=== PATIENT | female | born 1940 | race Caucasian/White ===

== ENCOUNTER 2018-04-20 20:43 | Inpatient (IN) ==
[2018-04-20] MEDS ORDERED: ONDANSETRON HCL/PF 2 MG/ML VIAL ONE (20:49)
[2018-04-20] MEDS ORDERED: MORPHINE SULFATE 4 MG/ML SYRG ONE (20:49)
[2018-04-20] MEDS ORDERED: ONDANSETRON HCL/PF 2 MG/ML VIAL IV ONE (20:54)
[2018-04-20] MEDS ORDERED: MORPHINE SULFATE 2 MG/ML DISP.SYRIN IV ONE (20:55)
--- NOTE | 2018-04-20 21:04 | ERNOTE ---
Lower Extremity HPI - Narrative Date of Service: 04/20/18 - General Lower Extremities Pain: hip: left Time Seen by Provider: 04/20/18 20:45 Source: patient Exam Limitations: no limitations - Immun/Allergies/Home Medications Immunizations: IMMUNIZATION HX Immunizations Up to Date Yes History of Influenza Vaccine Yes Hx Pneumococcal Vaccination Yes Allergies/Adverse Reactions: Allergies Allergy/AdvReac Type Severity Reaction Status Date / Time lisinopril AdvReac Mild Other Verified 04/20/18 20:47 Home Medications: HOME MEDICATIONS Cholecalciferol (Vitamin D3) [Vitamin D3] 2,000 unit PO DAILY 06/04/15 [Last Taken Unknown] Docusate Sodium [Colace] 200 mg PO HS 06/04/15 [Last Taken Unknown] Multivit-Min/Iron/Folic/Lutein [Centrum Silver Women Tablet] 1 ea PO DAILY 06/04/15 [Last Taken Unknown] Psyllium Husk (with Sugar) [Metamucil] 1 ea PO DAILY 06/04/15 [Last Taken Unknown] Ubidecarenone/Vit E Acet [Co Q-10 100 mg Softgel] 2 ea PO DAILY 06/04/15 [Last Taken Unknown] cetirizine 10 mg capsule 10 mg PO DAILY cap 10/16/17 [Last Taken Unknown] loratadine 10 mg tablet 10 mg PO DAILY 10/16/17 [Last Taken Unknown] losartan 50 mg tablet 50 mg PO DAILY #90 tab 11/13/17 [Last Taken Unknown] atorvastatin 10 mg tablet 10 mg PO DAILY #90 tab 03/04/18 [Last Taken Unknown] donepezil 10 mg tablet 10 mg PO DAILY #90 tab 03/04/18 [Last Taken Unknown] venlafaxine 37.5 mg tablet 37.5 mg PO DAILY #90 tab 03/04/18 [Last Taken Unknown] - Pain Score Pain Score #1 Pain Score: 8 - History of Present Illness Narrative: The patient is a 77 year old female who presents for left hip pain s/p fall which has been present since just [employer]. There are no associated symptoms. The patient reports left lateral hip pain, 8. There are no alleviating factors. There are aggravating factors of movement. Previous treatments have included: patient received Fentanyl 50mcg by EMS. The past medical history includes: anxiety, depression, dementia, HLD, HTN and osteopenia. The social history is negative. The patient has had no ill contacts. Patient states she had just returned home from dinner and a movie. Patient was out of her wheelchair and attempting to sit down in her "easy chair" when she lost balance upon trying to sit and fell landing on left hip. Patient denies striking head or LOC. Patient denies neck pain. Occurred: just prior to arrival, this evening Location of Incident: home Method of Injury: Reports: fell Reason for Fall: Reports: lost balance Loss of Consciousness: Reports: no loss of consciousness Modifying Factors - (Improves): Reports: immobilization Modifying Factors - (Worsens): Reports: jarring, movement Associated Symptoms: Reports: unable to bear weight. Denies: dizzy/light headedness Other Injuries: Reports: none Review of Systems - Review of Systems Constitutional: Present: no symptoms reported. Absent: recent illness, fever, fatigue EYE: Present: no symptoms reported ENT: Present: no symptoms reported. Absent: ear pain, nasal drainage, sore throat Respiratory: Present: no symptoms reported. Absent: shortness of breath, cough Cardiology: Present: no symptoms reported. Absent: chest pain Gastrointestinal/Abdominal: Present: no symptoms reported. 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 Hair, nose Family History: Family History (Last Reviewed 04/20/18 @ 21:00 by DAISHA Schmidt) Brother CVA (cerebral vascular accident) Heart disease Cancer Daughter Cancer age 44 Breast CA 2013 Father CHF (congestive heart failure) Heart disease Mother CHF (congestive heart failure) CVA (cerebral vascular accident) Social History: Preferred Language Venezuelan Smoking Status Never smoker Abuse History No History of abuse Psych History Hx of Anxiety,Hx of Depression Alcohol Use none Drug Use none (Last Updated 11/13/17 @ 16:05 by Chuyita Vaughn DO) No Social History Section defined Physical Exam - Physical Exam General Appearance: Present: wd/wn, alert, moderate distress, anxious Head Exam: Present: normal inspection, no evidence of injury, no tenderness w palpation. Absent: Pizano's Sign, contusions, ecchymosis, raccoon eyes, swelling Eye Exam: Normal inspection: bilateral Neck: Present: normal inspection, nontender, full range of motion Respiratory: Present: no respiratory distress, normal breath sounds, no accessory muscle use, lungs clear Cardiovascular/Chest: Present: regular rate, rhythm, no murmur Peripheral Pulses: N=norm/S=strong/W=weak/B=bound/A=absent: Femoral (L): Normal, Dorsalis-pedis (L): Normal Gastrointestinal/Abdominal: Present: normal bowel sounds, nontender, nondistended, soft, no organomegaly Extremity Exam: Present: normal inspection, normal range of motion - bilateral upper extremities, bony tenderness - left lateral hip, shortening to left lower extremity Neurological Exam: Present: alert, oriented, normal mood/affect Skin Exam: Present: normal color, warm/dry Progress - Date and Time Seen: Date and Time: 04/20/18 21:49 Discussed case with , patient will be admitted to medicine, remain NPO for possible surgical repair tomorrow of displaced left femoral neck fx. 04/20/18 21:50 Patient accepted by due to left hip fracture with orthopedic consult. - Results and Orders Patient's Lab Results:: I have reviewed the patient's lab results. - Vital Signs Patient's Vital Signs:: I have reviewed the patient's vital signs. Vital Signs: Vital Signs 04/20/18 20:43 Temperature 37.5 C Pulse Rate 75 Respiratory Rate 20 Blood Pressure 117/78 O2 Sat by Pulse Oximetry 99 - EKG EKG #1 EKG: NSR, other - PAC EKG read: Reviewed by me - X-Ray X-Ray #1 X-Ray: chest Interpretation: Reviewed by me X-ray Comments: No acute cardiopulmonary abnormality. X-Ray #2 X-Ray: c-spine Interpretation: Reviewed by me X-ray Comments: Arthritic changes noted, no acute osseous abnormalities or misalignment. Reviewed with . X-Ray #3 X-Ray: hip Interpretation: Reviewed by me X-ray Comments: Displaced left femoral neck fracture. Reviewed with . - Progress/Reassessment Chief Complaint: Hip Pain/Injury Departure Clinical Impression: Left displaced femoral neck fracture - Departure Disposition: Still a patient Condition: Good
[2018-04-20 21:32] LABS: Hematocrit 36.5 % (37.0-47.0); Hemoglobin 12.1 gm/dL (12.5-16.0); Mean Cell Volume 90.1 fl (78-100); Mean Corpuscular Hemoglobin 29.9 pg (27-31); Mean Corpuscular Hgb Conc 33.2 g/dl (32-36); Mean Platelet Volume 8.9 fl (8-12.5); Neutrophil # 3.5 K/mm3 (1.3-6.0); Neutrophil % 58.2 % (42-75.0); Platelet Count 227 K/mm3 (150-450); Red Blood Count 4.05 M/mm3 (4.2-5.4); Red Cell Distribution Width 12.5 % (11.5-14.0)
[2018-04-20 21:40] LABS: Albumin * 3.9 gm/dl (3.4-5.0); Anion Gap 17.3 mmol/L (6.8-13.8); BUN/Creatinine Ratio 13.3 (9.0-21.6); Bilirubin, Total 0.4 mg/dL (0.0-1.1); Ca. Corrected For Albumin 9.3 mg/dL (8.4-10.2); Calcium * 9.5 mg/dL (7.9-10.9); Carbon Dioxide 25.8 mmol/L (24-32.6); Potassium 4.1 mmol/L (3.4-4.6); Total Protein 7.9 gm/dL (6.2-8.2)
[2018-04-20] MEDS ORDERED: ONDANSETRON HCL/PF 2 MG/ML VIAL IV PRN (22:01)
[2018-04-20] MEDS: MORPHINE SULFATE 4 MG/ML SYRG IV PRN (23:18)
[2018-04-20] MEDS: NORMAL SALINE 1,000 ML IV PRN (23:26)
[2018-04-21] MEDS: MORPHINE SULFATE 4 MG/ML SYRG IV PRN ×3 (07:02→17:49)
--- NOTE | 2018-04-21 07:20 | HP ---
Chief Complaint - Chief Complaint Date of Service: 04/21/18 Time of Service: 07:19 Chief Complaint: right hip fracture History of Present Illness: Patient with past medical history of dementia and hypertension was brought to the ER after falling at home. Was found to have left hip fracture. This morning, she is able to tell me that she went to a show, but unable to give further history. She denies chest pain or abdominal pain. She reports her pain is controlled with morphine. 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 Hair, nose Family History: Family History (Last Reviewed 04/20/18 @ 23:41 by Leon King RN) Brother CVA (cerebral vascular accident) Heart disease Cancer Daughter Cancer age 44 Breast CA 2012 Father CHF (congestive heart failure) Heart disease Mother CHF (congestive heart failure) CVA (cerebral vascular accident) Social History: Patient Lives/Resources Home Utilized Occupation Retired Preferred Language Slovenian Do you have any mu-ism or No cultural preference? Smoking Status Never smoker Have you smoked in the past 12 No months Do you dip or chew tobacco No Abuse History No History of abuse Psych History Hx of Anxiety,Hx of Depression Alcohol Use none Drug Use none (Last Updated 11/13/17 @ 16:05 by Chuyita Vaughn DO) No Social History Section defined Review Of Systems (GEN) - Review of Systems Generalized/Overall Review: Absent: Fever Respiratory: Absent: Shortness of Breath Cardiac: Absent: Chest Pain, Edema Musculoskeletal: Present: Other - Right hip pain Neurological: Present: Other - Confusion Immunizations: IMMUNIZATION HX Immunizations Up to Date Yes History of Influenza Vaccine Yes Hx Pneumococcal Vaccination Yes Allergies/Adverse Reactions: Allergies Allergy/AdvReac Type Severity Reaction Status Date / Time lisinopril AdvReac Mild Other Verified 04/20/18 20:47 Home Medications: HOME MEDICATIONS Cholecalciferol (Vitamin D3) [Vitamin D3] 2,000 unit PO DAILY 06/04/15 [Last Taken Unknown] Docusate Sodium [Colace] 200 mg PO HS 06/04/15 [Last Taken Unknown] Multivit-Min/Iron/Folic/Lutein [Centrum Silver Women Tablet] 1 ea PO DAILY 06/04/15 [Last Taken Unknown] Psyllium Husk (with Sugar) [Metamucil] 1 ea PO DAILY 06/04/15 [Last Taken Unknown] Ubidecarenone/Vit E Acet [Co Q-10 100 mg Softgel] 2 ea PO DAILY 06/04/15 [Last Taken Unknown] cetirizine 10 mg capsule 10 mg PO DAILY cap 10/16/17 [Last Taken Unknown] loratadine 10 mg tablet 10 mg PO DAILY 10/16/17 [Last Taken Unknown] losartan 50 mg tablet 50 mg PO DAILY #90 tab 11/13/17 [Last Taken Unknown] atorvastatin 10 mg tablet 10 mg PO DAILY #90 tab 03/04/18 [Last Taken Unknown] donepezil 10 mg tablet 10 mg PO DAILY #90 tab 03/04/18 [Last Taken Unknown] venlafaxine 37.5 mg tablet 37.5 mg PO DAILY #90 tab 03/04/18 [Last Taken Unknown] Exam - Exam Vital Signs: Vital Signs - Last Taken Temp 36.8 C 04/21/18 02:01 Pulse 69 04/21/18 02:01 Resp 16 04/21/18 02:01 BP 124/64 04/21/18 02:01 Pulse Ox 97 04/21/18 02:01 Constitutional: Present: Elderly - Partially awakens for dyspnea, however does not open eyes Respiratory: Present: normal breath sounds, no respiratory distress Cardiovascular/Chest: Present: regular rate, rhythm Abdomen: Present: soft, nontender Extremity: Absent: lower extremity edema Neurologic: Absent: sensory deficit Diagnostic Studies: Abnormal Lab Results 04/20/18 04/20/18 Range/Units 21:20 21:20 RBC 4.05 L (4.2-5.4) M/mm3 Hgb 12.1 L (12.5-16.0) gm/dL Hct 36.5 L (37.0-47.0) % Eosinophils % 5.1 H (0.0-3.0) % Anion Gap 17.3 H (6.8-13.8) mmol/L Est GFR (Non-Af Amer) 50 L (60-130) mL/min ALT 17 L (19-67) U/L Laboratory Results WBC 6.0 K/mm3 (4.0-10.5) 04/20/18 21:20 RBC 4.05 M/mm3 (4.2-5.4) L 04/20/18 21:20 Hgb 12.1 gm/dL (12.5-16.0) L 04/20/18 21:20 Hct 36.5 % (37.0-47.0) L 04/20/18 21:20 MCV 90.1 fl (78-100) 04/20/18 21:20 MCH 29.9 pg (27-31) 04/20/18 21: MCHC 33.2 g/dl (32-36) 04/20/18 21:20 RDW 12.5 % (11.5-14.0) 04/20/18 21:20 Plt Count 227 K/mm3 (150-450) 04/20/18 21:20 MPV 8.9 fl (8-12.5) 04/20/18 21:20 Immature Gran % (Auto) 0.30 % (0.001-0.429) 04/20/18 21: Immature Gran # (Auto) 0.02 K/mm3 (0.000-0.0310) 04/20/18 21:20 Neutrophils % 58.2 % (42-75.0) 04/20/18 21:20 Lymphocytes % 29.9 % (20-51) 04/20/18 21:20 Monocytes % 5.8 % (0.0-9) 04/20/18 21:20 Eosinophils % 5.1 % (0.0-3.0) H 04/20/18 21: Basophils % 0.7 % (0.0-1.0) 04/20/18 21: Nucleated RBC % 0.0 k/mm3 (0-1) 04/20/18 21:20 Neutrophils # 3.5 K/mm3 (1.3-6.0) 04/20/18 21: Lymphocytes # 1.80 k/mm3 (1.5-3.5) 04/20/18 21:20 Monocytes # 0.4 k/mm3 (0.0-1.0) 04/20/18 21:20 Eosinophils # 0.3 k/mm3 (0.0-0.7) 04/20/18 21:20 Absolute Basophils 0.0 k/mm3 (0.0-0.1) 04/20/18 21:20 Sodium 142 mmol/L (132-142) 04/20/18 21:20 Plasma Sodium 142 mmol/L (130-142) 04/20/18 21:20 Potassium 4.1 mmol/L (3.4-4.6) 04/20/18 21:20 Chloride 103 mmol/L (97-106) 04/20/18 21:20 Carbon Dioxide 25.8 mmol/L (24-32.6) 04/20/18 21:20 Anion Gap 17.3 mmol/L (6.8-13.8) H 04/20/18 21:20 BUN 15 mg/dL (3-23) 04/20/18 21:20 Creatinine 1.13 mg/dL (0.4-1.4) 04/20/18 21:20 Est GFR (Non-Af Amer) 50 mL/min (60-130) L 04/20/18 21:20 BUN/Creatinine Ratio 13.3 (9.0-21.6) 04/20/18 21:20 Random Glucose 108 mg/dL (70-110) 04/20/18 21:20 Calcium 9.5 mg/dL (7.9-10.9) 04/20/18 21:20 Calcium Adj for Albumin 9.3 mg/dL (8.4-10.2) 04/20/18 21:20 Total Bilirubin 0.4 mg/dL (0.0-1.1) 04/20/18 21:20 AST 35 U/L (0-48) 04/20/18 21:20 ALT 17 U/L (19-67) L 04/20/18 21:20 Alkaline Phosphatase 61 U/L (50-170) 04/20/18 21:20 Total Protein 7.9 gm/dL (6.2-8.2) 04/20/18 21:20 Albumin 3.9 gm/dl (3.4-5.0) 04/20/18 21:20 Blood Type O Negative 04/20/18 21:20 Antibody Screen Negative 04/20/18 21:20 Assessment/Plan - Assessment/Plan (1) Left displaced femoral neck fracture Assessment: Ortho has been consulted. Pain control with morphine. Will need placement after discharge. Currently n.p.o. pending potential surgical repair today. Problem: Acute (2) Dementia Assessment: She has some confusion, however this is her baseline. Was prescribed Aricept will continue to anticipate her confusion will get worse given her injury and hospitalization. Problem: Acute (3) Hypertension Assessment: Well-controlled. Continue home losartan. Problem: Chronic Qualifiers: Hypertension type: essential hypertension Qualified Code(s): I10 - Essential (primary) hypertension
--- NOTE | 2018-04-21 08:08 | CONS ---
[facility] - General Date of Service: 04/21/18 Narrative: Mrs. Urban is a 77-year-old female who was at home transferring from a wheelchair to a chair when she fell resulting in an injury to her left hip. She was brought to the emergency department by EMS time she was found to have a displaced left femoral neck fracture. She was then admitted for preoperative evaluation for planned surgical intervention. She denies any other areas of pain. She denies any previous hip pain. She is limited ambulator preoperatively. She does live at home. There is family in the room with her at this time. Source: patient, family Exam Limitations: no limitations - History of Present Illness Timing/Duration: 24 hours Severity: moderate Modifying Factors - (Worsens): Reports: movement Modifying Factors - (Improves): Reports: immobilization, medication Associated Symptoms: denies symptoms Allergies/Adverse Reactions: Allergies lisinopril Adverse Reaction (Mild, Verified 04/20/18 20:47) Other cough Home Medications: Home Medications Medication Instructions Recorded Last Taken Cholecalciferol (Vitamin D3) 2,000 unit PO DAILY 06/04/15 Unknown [Vitamin D3] Docusate Sodium [Colace] 200 mg PO HS 06/04/15 Unknown Multivit-Min/Iron/Folic/Lutein 1 ea PO DAILY 06/04/15 Unknown [Centrum Silver Women Tablet] Psyllium Husk (with Sugar) 1 ea PO DAILY 06/04/15 Unknown [Metamucil] Ubidecarenone/Vit E Acet [Co Q-10 2 ea PO DAILY 06/04/15 Unknown 100 mg Softgel] cetirizine 10 mg capsule 10 mg PO DAILY cap 10/16/17 Unknown loratadine 10 mg tablet 10 mg PO DAILY 10/16/17 Unknown losartan 50 mg tablet 50 mg PO DAILY #90 tab 11/13/17 Unknown atorvastatin 10 mg tablet 10 mg PO DAILY #90 tab 03/04/18 Unknown donepezil 10 mg tablet 10 mg PO DAILY #90 tab 03/04/18 Unknown venlafaxine 37.5 mg tablet 37.5 mg PO DAILY #90 tab 03/04/18 Unknown Medications - Medications Current Medications: Current Medications Sodium Chloride (Sodium Chloride 0.9%) 1,000 mls @ 110 mls/hr IV .Q9H6M PRN PRN Reason: HYDRATION Stop: 05/20/18 22:04 Last Admin: 04/20/18 23:26 Dose: 80 mls/hr Documented by: Morphine Sulfate (Morphine Sulfate) 4 mg IV Q2H PRN PRN Reason: Pain Stop: 05/20/18 22:16 Last Admin: 04/21/18 07:02 Dose: 4 mg Documented by: Review of Systems - Review of Systems Generalized/Overall Review: Present: No Symptoms Reported Physical Examination - Exam Narrative: Left lower extremity: Palpable dorsalis pedis pulse, sensation is intact light touch, she is able to flex and extend her toes and ankle, thigh soft, no ecchymosis or lacerations about the hip, pain with any hip range of motion Vital Signs: Vital Signs - Last Taken Temp 36.6 C 04/21/18 06:00 Pulse 91 04/21/18 06:00 Resp 25 H 04/21/18 06:00 BP 120/70 04/21/18 06:00 Pulse Ox 96 04/21/18 06:00 O2 Oxygen Delivery Method Room Air Constitutional: Present: Alert - Results and Findings: Narrative: AP pelvis 2 views left hip: Displaced mid cervical left femoral neck fracture without any signs of pelvic fracture or advanced hip arthrosis Lab/Microbiology results last 24 hrs: Abnormal/Pending Laboratory Last 24 HRS 04/20/18 04/20/18 21:20 21:20 RBC 4.05 L Hgb 12.1 L Hct 36.5 L Eosinophils % 5.1 H Anion Gap 17.3 H Est GFR (Non-Af Amer) 50 L ALT 17 L - Assessments/Findings (1) Left displaced femoral neck fracture Diagnosis(s): We reviewed with her as well as the family options and plan for treatment. Plan is for a left hip hemiarthroplasty. The risks and recovery were reviewed. As long she is medically sound the plan is to proceed with surgery this afternoon. Problem: Acute
[2018-04-21] MEDS: DONEPEZIL HCL 10 MG TABLET PO SCH (09:50)
[2018-04-21] MEDS: LOSARTAN POTASSIUM 50 MG TABLET PO SCH (09:50)
[2018-04-21] MEDS: VENLAFAXINE HCL 75 MG TABLET PO SCH (09:50)
[2018-04-21] MEDS: NORMAL SALINE 1,000 ML IV PRN ×3 (11:10→15:58)
[2018-04-21] MEDS ORDERED: ceFAZolin SODIUM 1 GM VIAL IV PRN (12:00)
[2018-04-21] MEDS ORDERED: TRANEXAMIC ACID 1,000 MG in NORMAL SALINE 100 ML IV PRN (12:00)
--- NOTE | 2018-04-21 12:02 | ANES ---
Anesthesia Pre Procedure Eval Vitals/Labs: Last Vital Signs Temp 37.7 C 04/21/18 10:00 Pulse 92 04/21/18 10:00 Resp 18 04/21/18 10:00 BP 115/64 04/21/18 10:00 Pulse Ox 98 04/21/18 10:00 HOME MEDICATIONS Cholecalciferol (Vitamin D3) [Vitamin D3] 2,000 unit PO DAILY 06/04/15 [Last Taken Unknown] Docusate Sodium [Colace] 200 mg PO HS 06/04/15 [Last Taken Unknown] Multivit-Min/Iron/Folic/Lutein [Centrum Silver Women Tablet] 1 ea PO DAILY 06/04/15 [Last Taken Unknown] Psyllium Husk (with Sugar) [Metamucil] 1 ea PO DAILY 06/04/15 [Last Taken Unknown] Ubidecarenone/Vit E Acet [Co Q-10 100 mg Softgel] 2 ea PO DAILY 06/04/15 [Last Taken Unknown] cetirizine 10 mg capsule 10 mg PO DAILY cap 10/16/17 [Last Taken Unknown] loratadine 10 mg tablet 10 mg PO DAILY 10/16/17 [Last Taken Unknown] losartan 50 mg tablet 50 mg PO DAILY #90 tab 11/13/17 [Last Taken Unknown] atorvastatin 10 mg tablet 10 mg PO DAILY #90 tab 03/04/18 [Last Taken Unknown] donepezil 10 mg tablet 10 mg PO DAILY #90 tab 03/04/18 [Last Taken Unknown] venlafaxine 37.5 mg tablet 37.5 mg PO DAILY #90 tab 03/04/18 [Last Taken Unknown] Allergies/Adverse Reactions: Allergies Allergy/AdvReac Type Severity Reaction Status Date / Time lisinopril AdvReac Mild Other Verified 04/20/18 20:47 - Planned Procedure Planned Procedure: L FEMORAL NECK FX Medication List Reviewed:: Yes Allergies Verified: Yes Medical History (Last Reviewed 04/21/18 @ 12:01 by Marlon Belle CRNA) Anxiety and depression Collar bone fracture Left, age 7 or 9 Dementia 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, apraxic gait Hyperlipidemia Hypertension Mixed incontinence Osteopenia uterine surgery Onset Date: 10/19/13 Surgical History (Last Reviewed 04/21/18 @ 12:01 by Marlon Belle CRNA) Cataract Onset Date: 2010 bil, June and February 2011 History of colonoscopy Onset Date: 11/25/12 Status post surgical removal of malignant neoplasm of skin Onset Date: 2015 liat Suggs Family History (Last Reviewed 04/21/18 @ 12:01 by Marlon Belle CRNA) Brother CVA (cerebral vascular accident) Heart disease Cancer Daughter Cancer age 44 Breast CA 2013 Father CHF (congestive heart failure) Heart disease Mother CHF (congestive heart failure) CVA (cerebral vascular accident) - Family Anesthesia History Family History:: no untoward family reactions to anesthesia - Airway/Neck/Teeth Teeth Condition: missing Neck Exam: full range of motion Mallampatti Score: 2 Thyromental (T-M) distance: > 6 cm Mandibulo Hyoid distance: > 3 cm - Respiratory Respiratory Physical: lungs clear Smoking Status: Never smoker Sleep Apnea currently treated: No Sleep Apnea by current assessment: No - Cardiovascular Cardiac History: hypertension Tolerate Activity: Fair Heart Sounds: S1 & S2, Regular - Anesthesia Assessment and Plan ASA Class: PS, III Anesthesia Type Plan: Spinal Planned difficult intubation/equipment available: No
[2018-04-21] MEDS ORDERED: MAG HYDROX/ALUMINUM HYD/SIMETH 30 ML UDC PO PRN (14:27)
[2018-04-21] MEDS ORDERED: MAGNESIUM HYDROXIDE 30 ML UDC PO PRN (14:27)
--- NOTE | 2018-04-21 14:27 | OR ---
Operative Report - Dictated Report Narrative: Date: 04/21/2018 Preoperative diagnosis: Closed left hip displaced femoral neck fracture. Postoperative diagnosis: Closed left hip displaced femoral neck fracture Procedure: Left hip cemented edward-arthroplasty. Surgeon: Ahsan Weber M.D. Show Host Or Hostess: Manolo Hsu PA-C (provided essential set of skilled, educated hands that assisted with transfer, positioning, prepping, draping, retraction, manipulation, placement of implants, irrigation, closure wounds, and application of dressings all of which could not be performed by the available surgical crew) Anesthesia: Spinal. Complications: None Specimens: Bone for disposal. Estimated blood loss: 100 milliliters. Retained implants: Depuy [place] size 4 basic cemented femoral stem. Size 48 millimeter outside diameter self-centering bipolar head with +1.5 millimeter cobalt chromium 28 mm femoral head. Indications: Mrs. Walters is a 77-year-old female who fell at home. This patient was evaluated on the floor and found to have sustained a displaced femoral neck fracture. 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 The patient wished to proceed with surgical treatment. The risks, benefits, and alternatives discussed were , blood clots, bleeding, infection, nerve/tendon blood vessel/ injury, malposition of components, dislocation and/or instability of joint, intraoperative fracture, postoperative limited range of motion, persistent pain, failure of components, and need for additional procedures. Patient wished to proceed. Consent was obtained after answering all questions. Procedure: After marking the correct extremity on the floor, the patient was taken to the operating room. A timeout was performed. IV antibiotics consisting of Ancef were administered prior to the procedure. A spinal anesthetic was induced by anesthesia. A Barker catheter was inserted if not are in place. The patient was then transitioned to a lateral position on a well- padded pegboard. An axillary roll was placed. The head was in neutral position. The non-operative down leg was well-padded with SCD and REBECA hose in place. The arms were supported and padded to protect from any undue pressure on the bony prominences and nerves. Well-padded anterior and posterior pelvic and chest posts were secured in order to maintain a stable position of the pelvis. This was placed so that the pelvis was perpendicular to the floor. The body was in line with the pelvis. Once it was felt that we had protected all the bony prominences and the patient was well secured with a safety belt as well, the leg was pre-scrubbed with alcohol, prepped and draped in a standard sterile fashion. A standard anterior lateral hip incision was marked out over the greater trochanter. Ioban drapes were then placed. The skin incision was then made. Sharp dissection with a scalpel utilizing cautery for hemostasis was carried out down to the gluteus and iliotibial band fascia. This was split in line with the skin incision. The greater trochanter bursa was excised. The anterior and posterior margins of the abductor tendon were identified. The anterior 1/2-1/3 of the tendon was tagged and reflected off the greater trochanter leaving a sleeve of tendon for repair at the completion of the case. This exposed the underlying hip joint capsule. An inverted T-type capsulotomy was made extending this up to the brim of the acetabulum. We encountered a hematoma at this point confirming an acute fracture as well as noted displacement of the femoral neck fracture. Using Homans to assist with elevation of the soft tissues off the anterior, superior, and inferior aspects of the femoral neck, the hip was then placed in a figure 4 position for a femoral neck cleanup cut to be made. With the leg in an externally rotated and adducted position, the cutting flag was utilized in order to for a standard femoral neck cut approximately a fingerbreadth above the level of the lesser trochanter. This was done while protecting the surrounding soft tissues with Homans. The femoral head was then removed and sized for guidance on the size of the bipolar head. It was noted that there was no significant loss of articular cartilage on both the femoral head and weightbearing portions of the acetabulum. We then returned the leg to the table and turned our attention to the acetabulum. While protecting the surrounding soft tissues, the labrum and remaining tissue in the fovea were excised using a scalpel and cautery. The acetabulum was then protected with a sponge while we returned our attention to the femur. With the leg in a figure 4 position utilizing Homans for soft tissue protection, a box cutting osteotome, followed by Charkrystleey awl, followed by serial broaches were utilized in order to prepare the femur. It was found that a size 4 broach gave good axial and rotational stability. The proximal femur was visualized to ensure that there were no signs of fracture. A series of heads were trialed. It was found that a + 1.5 mm femoral head gave good overall stability. There is minimal longitudinal instability. Hip range of motion was able to reach full extension and external rotation to greater than 75 degrees prior to impingement along the posterior acetabulum. The hip was able to be flexed to greater than 90 degrees with internal rotation greater than 60 degrees prior to anterior impingement. The limb lengths were near equal based on comparison to the contralateral side . At this point was felt this was the appropriately sized femoral components as well as neck and femoral head. The trial implants were removed. A canal cement plug was placed distally and the canal was thoroughly irrigated using pulsatile vacuum brush device. The canal was then thoroughly dried with a suction device. The cement was vacuum mixed per the automatic hemmer's instructions and placed into a cement gun. Cement was then placed in the dry irrigated femur using modern cementing technique using a pressurizing device. The stem was then placed in the appropriate version compared to her [employer] anatomy and held in place while the cement cured and the extruded cement was removed. Once the cement was fully cured, we ensured that the stem was stable and that there were no signs of fracture. The remaining extruded cement was removed, and the joint and the capsule were thoroughly evaluated to ensure there are no cement fragments. The final femoral bipolar head was then impacted in the place. The hip was then reduced and seated completely. The capsule was repaired with a single interrupted #1 Vicryl. The abductor tendon was repaired to the greater trochanter utilizing #5 Ethibond through drill holes. This was oversewn with #1 Vicryl. The fascia was closed with interrupted #1 Vicryl. The wounds were thoroughly irrigated as we closed in layers. The deep and subcutaneous fat layers were closed with 0 Vicryl. The subcutaneous tissue was closed with a running 3-0 Vicryl and the skin with cyndi. All sponge, needle, blade, and instrument counts were correct prior to closing the wounds. Sterile dressings consisting of Xeroform, 4 x 4's, ABD, and tape were applied. The patient was awoken and transferred to her hospital bed and then to the postanesthesia care unit in stable condition. Postoperative condition: The plan is to return to the medical/surgical inpatient floor postoperatively. Postoperatively 24 hours of IV antibiotics, pain control, physical therapy, occupational therapy, and medical comanagement will be utilized. Patient will be weightbearing as tolerated with anterior hip precautions. Postoperative films will be obtained in the recovery room.
--- NOTE | 2018-04-21 14:42 | ANES ---
Post Anesthesia Discharge - Transfer of Care Transfer of Care handoff given to nurse: Yes - Discharge from PACU Discharge from PACU when meets criteria: Yes - Discharge to ASU Discharge to ASU-no complications/pt stable: Yes
[2018-04-21] MEDS: ceFAZolin SODIUM 1 GM in DEXTROSE 5 % IN WATER 100 ML IV SCH ×4 (15:57→22:33)
[2018-04-21] MEDS: HYDROcodone/ACETAMINOPHEN 1 EACH TABLET PO PRN ×2 (17:42→21:05)
[2018-04-21] MEDS: DOCUSATE SODIUM 100 MG CAPSULE PO SCH (21:06)
[2018-04-21] MEDS: SENNOSIDES/DOCUSATE SODIUM 1 TAB TABLET PO SCH (21:07)
[2018-04-22] MEDS: HYDROcodone/ACETAMINOPHEN 1 EACH TABLET PO PRN ×6 (01:13→21:06)
[2018-04-22] MEDS: NORMAL SALINE 1,000 ML IV PRN (02:15)
[2018-04-22] MEDS: ceFAZolin SODIUM 1 GM in DEXTROSE 5 % IN WATER 100 ML IV SCH ×2 (04:51)
[2018-04-22] MEDS: MORPHINE SULFATE 4 MG/ML SYRG IV PRN ×2 (04:55→09:19)
[2018-04-22 05:46] LABS: Hematocrit 32.1 % (37.0-47.0); Hemoglobin 10.1 gm/dL (12.5-16.0); Mean Cell Volume 94.7 fl (78-100); Mean Corpuscular Hemoglobin 29.8 pg (27-31); Mean Corpuscular Hgb Conc 31.5 g/dl (32-36); Mean Platelet Volume 8.8 fl (8-12.5); Platelet Count 131 K/mm3 (150-450); Red Blood Count 3.39 M/mm3 (4.2-5.4); Red Cell Distribution Width 12.4 % (11.5-14.0)
[2018-04-22 05:55] LABS: Anion Gap 14.5 mmol/L (6.8-13.8); BUN/Creatinine Ratio 10.5 (9.0-21.6); Calcium * 8.2 mg/dL (7.9-10.9); Carbon Dioxide 21.2 mmol/L (24-32.6); Potassium 3.7 mmol/L (3.4-4.6)
--- NOTE | 2018-04-22 07:58 | PN ---
Subjective - Date and Time Seen Date: 04/22/18 Time: 07:56 Subjective Narrative: Subjective: Reports some pain. Was able to get to the chair with therapy. Pain is tolerable. Catheter in place. Tolerating by mouth intake. Denies any nausea or vomiting. Denies calf pain. Slept well. Physical exam: Alert and oriented Left lower extremity: Palpable dorsalis pedis pulse. Sensation grossly intact to light touch. Dressings clean and dry. Able to flex and extend ankle and toes. No excessive drainage. Calf and thigh are soft and nontender. Assessment: Postop day 1 status post left hip edward-arthroplasty. Plan: Continue with physical and occupational therapy weightbearing as tolerated. Continue with anticoagulation -10 days of Lovenox. 24 hours postoperative prophylactic antibiotics. Pain control with goal to rely on oral medications. Continue bowel regimen. Will need 6 weeks with walker or assitive device to protect joint while ambulating during the recovery process. Keep wounds dry. Cover with dry gauze and tape Objective - Vitals Vitals: Last Vital Signs Temp 37 C 04/21/18 23:08 Pulse 79 04/22/18 05:07 Resp 18 04/22/18 05:07 BP 139/79 04/22/18 05:07 Pulse Ox 96 04/22/18 05:07 - Abnormal Lab Findings Abnormal Lab Findings: Abnormal Lab Results 04/22/18 04/22/18 Range/Units 05:15 05:15 RBC 3.39 L (4.2-5.4) M/mm3 Hgb 10.1 L (12.5-16.0) gm/dL Hct 32.1 L (37.0-47.0) % MCHC 31.5 L (32-36) g/dl Plt Count 131 L (150-450) K/mm3 Carbon Dioxide 21.2 L (24-32.6) mmol/L Anion Gap 14.5 H (6.8-13.8) mmol/L Random Glucose 112 H (70-110) mg/dL Cauti Physician Documentation - Urinary Catheter Management Urethral (Barker) Date of Insertion: 04/20/18 Time of Insertion: 21:39 Assessment/Plan - Problems/Diagnosis (1) Left displaced femoral neck fracture Problem: Acute
[2018-04-22] MEDS: LOSARTAN POTASSIUM 50 MG TABLET PO SCH (08:33)
[2018-04-22] MEDS: DONEPEZIL HCL 10 MG TABLET PO SCH (08:33)
[2018-04-22] MEDS: VENLAFAXINE HCL 75 MG TABLET PO SCH (08:33)
--- NOTE | 2018-04-22 11:57 | PN ---
Subjective - Date and Time Seen Date: 04/22/18 Time: 11:53 Subjective Narrative: Patient is POD #1 left hip replacement for fracture. She is sitting up eating breakfast at the time of my exam. She reports not having pain currently. She does have some confusion, and did not remember having hip surgery yesterday. Denies chest pain, shortness of breath, abdominal pain. Objective - Review of Systems Generalized/Overall Review: Denies: Fever Respiratory: Denies: Shortness of Breath Cardiac: Denies: Chest Pain Abdominal: Denies: Vomiting, Diarrhea Musculoskeletal Complaints: Reports: Joint Pain - left hip - Vitals Vitals: Last Vital Signs Temp 37.5 C 04/22/18 10:03 Pulse 89 04/22/18 10:03 Resp 16 04/22/18 10:03 BP 131/67 04/22/18 10:03 Pulse Ox 94 04/22/18 10:03 - Abnormal Lab Findings Abnormal Lab Findings: Abnormal Lab Results 04/22/18 04/22/18 Range/Units 05:15 05:15 RBC 3.39 L (4.2-5.4) M/mm3 Hgb 10.1 L (12.5-16.0) gm/dL Hct 32.1 L (37.0-47.0) % MCHC 31.5 L (32-36) g/dl Plt Count 131 L (150-450) K/mm3 Carbon Dioxide 21.2 L (24-32.6) mmol/L Anion Gap 14.5 H (6.8-13.8) mmol/L Random Glucose 112 H (70-110) mg/dL - Exam Constitutional: Present: Alert, Cooperative - Confusion, Elderly Respiratory: Present: normal breath sounds, no respiratory distress. Absent: crackles, rales Cardiovascular/Chest: Present: regular rate, rhythm Abdomen: Present: soft, nontender Extremity: Absent: lower extremity edema Eye contact: Present: cooperative, good eye contact Cauti Physician Documentation - Urinary Catheter Management Urethral (Barker) Date of Insertion: 04/20/18 Time of Insertion: 21:39 Date of Removal: 04/22/18 Time of Removal: 11:00 Assessment/Plan - Problems/Diagnosis (1) Left displaced femoral neck fracture Problem: Acute Narrative: Underwent repair yesterday afternoon, and is up to the chair today. Is eating breakfast without difficulty. Can discontinue IV fluids. She did require 2 doses of IV pain medicine since yesterday afternoon. Will defer pain management to her surgeon. Will likely need placement after discharge, which was mentioned with family yesterday prior to her surgery. Physical therapy will be working with her during hospitalization. (2) Dementia Problem: Chronic (3) Hypertension Problem: Chronic Qualifiers: Hypertension type: essential hypertension Qualified Code(s): I10 - Essential (primary) hypertension Narrative: Continue home medications. Overall well controlled.
[2018-04-22] MEDS: ACETAMINOPHEN 500 MG TABLET PO PRN ×2 (12:20→19:12)
[2018-04-22] MEDS ORDERED: ENOXAPARIN SODIUM 40 MG/0.4 ML SYRG SC SCH (13:27)
[2018-04-22] MEDS: DOCUSATE SODIUM 100 MG CAPSULE PO SCH (21:07)
[2018-04-22] MEDS: SENNOSIDES/DOCUSATE SODIUM 1 TAB TABLET PO SCH (21:07)
[2018-04-23] MEDS: HYDROcodone/ACETAMINOPHEN 1 EACH TABLET PO PRN ×4 (00:55→11:55)
[2018-04-23] MEDS: ACETAMINOPHEN 500 MG TABLET PO PRN (03:57)
[2018-04-23] MEDS: DONEPEZIL HCL 10 MG TABLET PO SCH (08:29)
[2018-04-23] MEDS: VENLAFAXINE HCL 75 MG TABLET PO SCH (08:29)
[2018-04-23] MEDS: LOSARTAN POTASSIUM 50 MG TABLET PO SCH (08:29)
--- NOTE | 2018-04-23 08:40 | DS ---
(1) Left displaced femoral neck fracture Problem: Acute (2) Dementia Problem: Chronic (3) Hypertension Problem: Chronic Qualifiers: Hypertension type: essential hypertension Qualified Code(s): I10 - Kush josué (primary) hypertension Description of Stay: Patient with PMHx of dementia and HTN was brought to the ED after attempting to sit in her easy chair and falling, landing on her left hip. Xrays revealed an angulated, mildly impacted left femoral neck fracture. She underwent surgical repair on 04/21/18 without complication. She did require IV morphine for pain control until the following morning, but her pain was controlled with norco the final 24 hours of her admission. She did not have increased delirium during her stay, and her blood pressure remained controlled. She was given colace, milk of magnesia and prune juice, but did have some constipation. She was ready for discharge POD #2 with 10 days of lovenox. She will require a walker or assistive device to ambulate for 6 weeks. The wound is to be kept covered with dry gauze and tape. Procedures Performed: see notes below - left hip cemented edward-arthroplasty Results and Findings: Lab Pending Results 04/20/18 21:20: WBC 6.0, RBC 4.05 L, Hgb 12.1 L, Hct 36.5 L, MCV 90.1, MCH 29.9, MCHC 33.2, RDW 12.5, Plt Count 227, MPV 8.9, Immature Gran % (Auto) 0.30, Immature Gran # (Auto) 0.02, Neutrophils % 58.2, Lymphocytes % 29.9, Monocytes % 5.8, Eosinophils % 5.1 H, Basophils % 0.7, Nucleated RBC % 0.0, Neutrophils # 3.5, Lymphocytes # 1.80, Monocytes # 0.4, Eosinophils # 0.3, Absolute Basophils 0.0 04/20/18 21:20: Sodium 142, Plasma Sodium 142, Potassium 4.1, Chloride 103, Carbon Dioxide 25.8, Anion Gap 17.3 H, BUN 15, Creatinine 1.13, Est GFR (Non-Af Amer) 50 L, BUN/Creatinine Ratio 13.3, Random Glucose 108, Calcium 9.5, Calcium Adj for Albumin 9.3, Total Bilirubin 0.4, AST 35, ALT 17 L, Alkaline Phosphatase 61, Total Protein 7.9, Albumin 3.9 04/20/18 21:20: Blood Type O Negative, Antibody Screen Negative 04/22/18 05:15: WBC 7.0, RBC 3.39 L, Hgb 10.1 L, Hct 32.1 L, MCV 94.7, MCH 29.8, MCHC 31.5 L, RDW 12.4, Plt Count 131 L, MPV 8.8 04/22/18 05:15: Sodium 137, Plasma Sodium 137, Potassium 3.7, Chloride 105, Carbon Dioxide 21.2 L, Anion Gap 14.5 H, BUN 9, Creatinine 0.86, Est GFR (Non-Af Amer) 68 D, BUN/Creatinine Ratio 10.5, Random Glucose 112 H, Calcium 8.2 Discharge Location: [facility] Disposition: SNF Condition: Good Level of Care: SNF Discharge Activity: Activity as tolerated Discharge Diet: General/regular food Referrals: Chuyita Vaughn DO [Primary Care Provider] - Problem Oriented Discharge Instructions to Patient/Family: Total Hip Replacement, [id number], Hip Rehabilitation After Surgery Additional Patient Instructions (free text): [facility] at discharge. PT/OT to evaluate and treat. Will need 6 weeks with walker or assistive device to protect joint while ambulating during the recovery process. Keep wounds dry. Cover with dry gauze and tape. Follow up with Dr. Weber on 05/04/17 at 1:00pm. Prescriptions (Any new or edited meds): Acetaminophen [Tylenol] 500 mg PO Q6H PRN #60 tab PRN Reason: Mild Pain (Pain Scale 1-3) Enoxaparin Sodium [Lovenox] 40 mg SC Q24H #9 disp.syrin HYDROcodone/ACETAMINOPHEN [[place] 5-325] 1 ea PO Q3H PRN 7 Days #70 tab PRN Reason: Moderate Pain (Pain Scale 4-6) Mag Hydrox/Aluminum Hyd/Simeth [Maalox Plus Suspension] 30 ml PO Q6H PRN #1 bottle PRN Reason: Indigestion Magnesium Hydroxide [Milk Of Magnesia] 30 ml PO DAILY PRN #1 bottle PRN Reason: Constipation Polyethylene Glycol 3350 [Miralax] 17 gm PO DAILY PRN #2 bottle PRN Reason: Constipation Sennosides/Docusate Sodium [Senokot-S] 2 tab PO HS #1 bottle Complete Home Medications List: Complete Home Medication List: Cholecalciferol (Vitamin D3) [Vitamin D3] 2,000 unit PO DAILY 06/04/15 Docusate Sodium [Colace] 200 mg PO HS 06/04/15 Multivit-Min/Iron/Folic/Lutein [Centrum Silver Women Tablet] 1 ea PO DAILY 06/04/15 Psyllium Husk (with Sugar) [Metamucil] 1 ea PO DAILY 06/04/15 Ubidecarenone/Vit E Acet [Co Q-10 100 mg Softgel] 2 ea PO DAILY 06/04/15 cetirizine 10 mg capsule 10 mg PO DAILY cap 10/16/17 loratadine 10 mg tablet 10 mg PO DAILY 10/16/17 losartan 50 mg tablet 50 mg PO DAILY #90 tab 11/13/17 atorvastatin 10 mg tablet 10 mg PO DAILY #90 tab 03/04/18 donepezil 10 mg tablet 10 mg PO DAILY #90 tab 03/04/18 venlafaxine 37.5 mg tablet 37.5 mg PO DAILY #90 tab 03/04/18 Acetaminophen [Tylenol] 500 mg PO Q6H PRN #60 tab 04/23/18 Enoxaparin Sodium [Lovenox] 40 mg SC Q24H #9 disp.syrin 04/23/18 HYDROcodone/ACETAMINOPHEN [[place] 5-325] 1 ea PO Q3H PRN 7 Days #70 tab 04/23/18 Mag Hydrox/Aluminum Hyd/Simeth [Maalox Plus Suspension] 30 ml PO Q6H PRN #1 bottle 04/23/18 Magnesium Hydroxide [Milk Of Magnesia] 30 ml PO DAILY PRN #1 bottle 04/23/18 Polyethylene Glycol 3350 [Miralax] 17 gm PO DAILY PRN #2 bottle 04/23/18 Sennosides/Docusate Sodium [Senokot-S] 2 tab PO HS #1 bottle 04/23/18
[2018-04-23 11:18] VITALS: BP 125/60
== END 2018-04-23 12:00 | DRG 470 ==
LOC: ER 20:43 → MS 21:53
PROVIDERS: ADMIT Family Medicine; ATTEND Family Medicine
DX: F01.50 Vascular dementia, unspecified severity, without behavioral disturbance, psychotic disturbance, mood disturbance, and anxiety; Y92.009 Unspecified place in unspecified non-institutional (private) residence as the place of occurrence of the external cause; K59.00 Constipation, unspecified; I10 Essential (primary) hypertension; R48.2 Apraxia; G30.9 Alzheimer's disease, unspecified; F41.9 Anxiety disorder, unspecified; Z82.49 Family history of ischemic heart disease and other diseases of the circulatory system; F32.9 Major depressive disorder, single episode, unspecified; Y93.89 Activity, other specified; Z85.828 Personal history of other malignant neoplasm of skin; E78.5 Hyperlipidemia, unspecified; W07.XXXA Fall from chair, initial encounter; F02.80 Dementia in other diseases classified elsewhere, unspecified severity, without behavioral disturbance, psychotic disturbance, mood disturbance, and anxiety; M85.80 Other specified disorders of bone density and structure, unspecified site; S72.002A Fracture of unspecified part of neck of left femur, initial encounter for closed fracture; R26.89 Other abnormalities of gait and mobility; Z88.8 Allergy status to other drugs, medicaments and biological substances
CPT/HCPCS: 36415; 51702; 71010; 71045; 72050; 73502; 80048; 80053; 85025; 85027; 86850; 86900; 93005; 96374; 96375; 97110; 97116; 97161; 97165; 97530; 99285; J2405